=== PATIENT | female | born 1990 | race Caucasian/White ===

== ENCOUNTER 2020-08-31 22:36 | Emergency (ER) | payer MEDICAID ==
[~2020-08-31] VITALS: Ht 157.5 cm; Wt 74.8 kg
[~2020-08-31 22:36] MED LIST: ALBU-136 IH; BUDE1AER IH; LEVA0.043 IH; PREN-385 PO
[2020-08-31 22:53] VITALS: BP 114/70
--- NOTE | 2020-08-31 22:55 | NUR ---
TO LOBBY A/W BED AMBULATORY
[2020-09-01 00:12] VITALS: BP 114/70
--- NOTE | 2020-09-01 00:12 | NUR ---
PT SEEN BY DR CID, NO NURSING INTERVENTIONS NEEDED
--- NOTE | 2020-09-01 00:13 | NUR ---
Patient discharged with v/s stable. Written and verbal after care instructions given and explained. Patient verbalized understanding. Ambulatory with steady gait. All questions addressed prior to discharge. Advised to follow up with PMD.
== END 2020-09-01 00:13 | disposition home or self-care (01) ==
LOC: MED 22:36
DX: S01.91XD Laceration without foreign body of unspecified part of head, subsequent encounter (principal); J45.909 Unspecified asthma, uncomplicated; E11.9 Type 2 diabetes mellitus without complications; Z48.00 Encounter for change or removal of nonsurgical wound dressing; Z79.899 Other long term (current) drug therapy; X58.XXXD Exposure to other specified factors, subsequent encounter
CPT/HCPCS: 99281

== ENCOUNTER 2021-01-18 02:35 | Emergency (ER) | payer MEDICAID ==
[~2021-01-18] VITALS: Ht 157.5 cm; Wt 75.7 kg
[~2021-01-18 02:35] MED LIST changes: +ALBU-118 IH; -ALBU-136 IH
[2021-01-18 02:40] VITALS: BP 105/67
--- NOTE | 2021-01-18 02:40 | NUR ---
TO BED AMBULATORY
--- NOTE | 2021-01-18 02:45 | NUR ---
LEFT ARMPIT PAIN, SWELLING FOR A MONTH.
[2021-01-18] MEDS ORDERED: IBUPROFEN 800 MG TAB PO ONE (02:50)
[2021-01-18] MEDS ORDERED: SULFAMETH/TRIMETH DS 800/160MG 1 TAB PO ONE (02:50)
[2021-01-18] MEDS ORDERED: IBUP-2218 PO (02:52)
[2021-01-18] MEDS ORDERED: SULF-59 PO (02:52)
[2021-01-18 03:07] VITALS: BP 105/67
--- NOTE | 2021-01-18 03:07 | NUR ---
Patient discharged with v/s stable. Written and verbal after care instructions given and explained. Patient alert, oriented and verbalized understanding of instructions. Ambulatory with steady gait. All questions addressed prior to discharge. ID band removed. Patient advised to follow up with PMD. Rx of ibuprofen and bactrim given. Patient educated on indication of medication including possible reaction and side effects. Opportunity to ask questions provided and answered.
== END 2021-01-18 03:07 | disposition home or self-care (01) ==
LOC: MED 02:35
DX: L02.412 Cutaneous abscess of left axilla (principal); J45.909 Unspecified asthma, uncomplicated; E11.9 Type 2 diabetes mellitus without complications
CPT/HCPCS: 81025; 99283

== ENCOUNTER 2024-01-22 15:42 | Emergency (ER) | payer MEDICAID, OTHER ==
[~2024-01-22] VITALS: Ht 157.5 cm; Wt 78.0 kg
[~2024-01-22 15:42] MED LIST changes: +IBUP-2218 PO; +SULF-59 PO
[2024-01-22 15:49] VITALS: BP 98/60; PULSE 83; RESP 15; TEMP 98.8; O2SAT 97
[2024-01-22 16:22] VITALS: O2SAT 97
[2024-01-22] MEDS: ONDANSETRON 4 MG/2 ML VIAL IVP ONE (16:58)
[2024-01-22] MEDS: NACL 0.9% 1,000 ML IV ONE (16:59)
[2024-01-22 17:05] LABS: BILIRUBIN,URINE NEGATIVE (NEGATIVE); BLOOD, URINE 3+ (NEGATIVE); COLOR,URINE YELLOW (YELLOW); LEUKOCYTE ESTERASE ,URINE NEGATIVE (NEGATIVE); NITRITE, URINE POSITIVE (NEGATIVE); PH,URINE 6.5 (5.0-9.0); PROTEIN,URINE 2+ (NEGATIVE); UGLUCOSE 3+ (NEGATIVE); UROBILINOGEN,URINE 0.2 EU/dL (0.2 - 1)
[2024-01-22 17:08] LABS: BASOPHILS % (AUTO) 0.5 % (0.0-2.0); EOSINOPHILS # (AUTO) 0.1 K/uL (0-0.4); EOSINOPHILS % (AUTO) 0.9 % (0.0-4.0); HEMATOCRIT 38.1 % (36-48); HEMOGLOBIN 12.9 g/dL (12.0-16.0); LYMPHOCYTES % (AUTO) 28.3 % (20.5-51.1); MEAN CORPUSCULAR HEMOGLOBIN 31 pg (27-31); MEAN CORPUSCULAR HGB CONC 34 g/dL (33-37); MEAN CORPUSCULAR VOLUME 92.7 fL (80-94); MONOCYTES # (AUTO) 0.5 K/uL (0.8-1.0); MONOCYTES % (AUTO) 7.4 % (1.7-9.3); NEUTROPHILS # (AUTO) 4.4 K/uL (1.8-7.7); NEUTROPHILS % (AUTO) 62.9 % (42.2-75.2); PLATELET COUNT (AUTO) 281 K/uL (140-450); RED BLOOD CELL COUNT(AUTO) 4.12 MIL/uL (4.20-5.40); RED CELL DISTRIBUTION WIDTH 13.5 % (11.6-13.7)
[2024-01-22 17:21] LABS: APPEARANCE,URINE HAZY (CLEAR); BACTERIA,URINE 3+ /HPF (None Seen); RBC,URINE TOO NUMEROUS TO COUN /HPF (0-5); SQUAMOUS EPITHELIAL CELL,UR 4-10 (MOD) /LPF (0-3 (FEW))
[2024-01-22 17:22] LABS: MUCUS,URINE 3+ /LPF (None Seen)
[2024-01-22 17:25] LABS: ANION GAP 15.2 (8-16); CARBON DIOXIDE 25.5 mmol/L (21-32); POTASSIUM 3.7 mmol/L (3.5-5.1)
[2024-01-22 17:34] LABS: ALBUMIN 3.5 g/dL (3.4-5.0); BILIRUBIN,DIRECT 0.1 mg/dL (0.0-0.3); TOTAL BILIRUBIN 0.4 mg/dL (0.0-1.0); TOTAL PROTEIN, SERUM 7.8 g/dL (6.4-8.2)
[2024-01-22] MEDS ORDERED: CEPH-588 PO (17:57)
[2024-01-22] MEDS ORDERED: ONDA-188 SL (17:57)
[2024-01-22 18:10] VITALS: BP 103/59; PULSE 75; RESP 17; TEMP 98.5; O2SAT 98
== END 2024-01-22 18:10 | disposition home or self-care (01) ==
LOC: MED 15:42
DX: A08.4 Viral intestinal infection, unspecified (principal); N39.0 Urinary tract infection, site not specified; J45.909 Unspecified asthma, uncomplicated; I10 Essential (primary) hypertension; E11.9 Type 2 diabetes mellitus without complications; E78.00 Pure hypercholesterolemia, unspecified; Z79.899 Other long term (current) drug therapy
CPT/HCPCS: 36415; 80048; 80076; 81001; 81025; 83690; 85025; 87086; 96361; 96374; 99283; J2405; J7030